=== PATIENT | female | born 1930 | race Caucasian/White ===

== ENCOUNTER 2017-09-10 12:43 | Outpatient (CLI) | payer MEDICARE, BC ==
[~2017-09-10] VITALS: Ht 161.3 cm; Wt 90.7 kg
[~2017-09-10 12:43] MED LIST: ASPI81TA30 PO; ATEN25TA PO; ESCI20TA38 PO; LORA1TAB PO; LOSA50TA37 PO; TRAM50TA2 PO; hydralazine PO
[2017-09-10] MEDS ORDERED: albuterol 2.5 MG/3 ML nebule NEB ONE (13:30)
== END 2017-09-10 23:59 | disposition home or self-care (01) ==
LOC: RT 12:43
PROVIDERS: ATTEND Family Medicine
DX: R06.02 Shortness of breath (principal); I10 Essential (primary) hypertension; J44.9 Chronic obstructive pulmonary disease, unspecified; Z87.891 Personal history of nicotine dependence
CPT/HCPCS: 94060; 94640; 94727; 94729; 94760

== ENCOUNTER 2020-12-22 19:24 | Emergency (ER) | payer MEDICARE, BC ==
[~2020-12-22] VITALS: Ht 160 cm; Wt 90.0 kg
[~2020-12-22 19:24] MED LIST changes: -ESCI20TA38 PO; +ESCI20TA39 PO; -LOSA50TA37 PO; +LOSA50TA64 PO
[2020-12-22 21:01] LABS: BASOPHILS # (AUTO) 0.1 X10'3 (0-0.2); BASOPHILS % (AUTO) 0.8 % (0-1); EOSINOPHILS # (AUTO) 0.2 X10'3 (0-0.9); EOSINOPHILS % (AUTO) 2.8 % (0-6); HEMATOCRIT 41.4 % (35.0-45.0); HEMOGLOBIN 13.7 g/dl (12.0-16.0); LYMPHOCYTES % (AUTO) 33.3 % (21-51); MEAN CORPUSCULAR HEMOGLOBIN 30.1 PG (27.0-31.0); MEAN CORPUSCULAR HGB CONC 33.1 g/dL (33.0-36.5); MEAN CORPUSCULAR VOLUME 90.8 FL (78-98); MEAN PLATELET VOLUME 8.5 FL (7.4-10.4); MONOCYTES % (AUTO) 10.9 % (2-12); NEUTROPHILS # (AUTO) 4.6 X10'3 (1.8-7.7); NEUTROPHILS % (AUTO) 52.2 % (42-75); PLATELET COUNT 255 X10'3 (140-440); RED BLOOD COUNT 4.56 X10'6 (4.20-5.60); RED CELL DISTRIBUTION WIDTH 13.7 % (11.5-14.5); WHITE BLOOD COUNT 8.9 X10'3 (4.5-11.0)
[2020-12-22 21:20] LABS: ALANINE AMINOTRANSFERASE 20 U/L (12-78); ALBUMIN 3.3 G/DL (3.4-5.0); ALBUMIN/GLOBULIN RATIO 1.1 (1.1-1.5); ALKALINE PHOSPHATASE 113 IU/L (46-116); ANION GAP 8 (8-16); ASPARTATE AMINO TRANSFERASE 11 U/L (10-37); BILIRUBIN,TOTAL 0.3 MG/DL (0.1-1.0); BLOOD UREA NITROGEN 20 MG/DL (7-18); BUN/CREATININE RATIO 16.7 (6.6-38.0); CALCIUM 9.2 MG/DL (8.5-10.1); CHLORIDE 106 MMOL/L (99-107); GLUCOSE 106 MG/DL (70-104); MAGNESIUM 2.2 MG/DL (1.5-2.4); POTASSIUM 3.7 MMOL/L (3.5-5.1); SODIUM 143 MMOL/L (135-145); TOTAL CARBON DIOXIDE 29.1 MMOL/L (24-32); TOTAL PROTEIN 6.4 G/DL (6.4-8.2); eGFR 42 ML/MIN
[2020-12-22 21:22] LABS: PARTIAL THROMBOPLASTIN TIME 25 SECONDS (22-32)
--- NOTE | 2020-12-22 22:09 | NUR ---
pt ambulate with steady gait to restroom, urine sample sent to lab
--- NOTE | 2020-12-22 22:11 | NUR ---
pt has no c/o headache, blurred vision, resting quietly on bed
[2020-12-22] MEDS ORDERED: cloNIDine 0.1 mg tablet PO ONE (23:55)
[2020-12-22] MEDS ORDERED: atenolol 50mg tablet PO ONE (23:55)
[2020-12-23 00:47] LABS: CLARITY,URINE CLOUDY (Clear); COLOR,URINE YELLOW (Yellow); GLUCOSE, URINE NEGATIVE (Neg); KETONES,URINE NEGATIVE (Neg); LEUKOCYTE ESTERASE ,URINE TRACE (Neg); NITRITES, URINE NEGATIVE (Neg); OCCULT BLOOD,URINE NEGATIVE (Neg); PH,URINE 6.5 (4.8-8.0); PROTEIN,URINE NEGATIVE (Neg); UA COLLECTION TYPE CLN CATCH MIDSTREAM; UROBILINOGEN,URINE 0.2 E.U/dL (0.2-1.0)
[2020-12-23 01:04] LABS: BACTERIA,URINE 4+ /HPF (Neg); SQUAMOUS EPITHELIAL CELL,UR FEW /LPF (FEW)
[2020-12-23 01:05] LABS: RBC,URINE 0-2 /HPF (0-2); RENAL CELLS, URINE FEW /HPF; WBC,URINE 0-4 /HPF (0-4)
[2020-12-23] MEDS ORDERED: NITR100C6 PO (02:08)
[2020-12-23 02:29] VITALS: BP 175/79
== END 2020-12-23 02:33 | disposition home or self-care (01) ==
LOC: ER 19:24
DX: N39.0 Urinary tract infection, site not specified (principal); R41.0 Disorientation, unspecified; I10 Essential (primary) hypertension; R10.84 Generalized abdominal pain; R53.1 Weakness; E78.00 Pure hypercholesterolemia, unspecified; J44.9 Chronic obstructive pulmonary disease, unspecified; Z90.710 Acquired absence of both cervix and uterus; Z60.2 Problems related to living alone; Z88.8 Allergy status to other drugs, medicaments and biological substances; Z79.82 Long term (current) use of aspirin; Z79.899 Other long term (current) drug therapy
CPT/HCPCS: 36415; 70450; 71045; 80053; 81001; 81003; 83735; 84145; 84484; 85025; 85610; 85730; 87077; 87088; 87186; 93005; 99285

== ENCOUNTER 2021-07-20 06:07 | Inpatient (IN) | payer MEDICARE, BC ==
[~2021-07-20] VITALS: Ht 162.6 cm; Wt 99.6 kg
[~2021-07-20 06:07] MED LIST changes: +NITR100C6 PO
[2021-07-20 07:27] LABS: CLARITY,URINE SLIGHTLY CLOUDY (Clear); COLOR,URINE YELLOW (Yellow); GLUCOSE, URINE NEGATIVE (Neg); KETONES,URINE TRACE mg/dl (Neg); LEUKOCYTE ESTERASE ,URINE NEGATIVE (Neg); NITRITES, URINE NEGATIVE (Neg); OCCULT BLOOD,URINE SMALL (Neg); PROTEIN,URINE TRACE mg/dl (Neg); UROBILINOGEN,URINE 0.2 E.U/dL (0.2-1.0)
[2021-07-20 07:32] LABS: UA COLLECTION TYPE CLN CATCH MIDSTREAM
[2021-07-20 07:32] LABS: BASOPHILS % (AUTO) 0.2 % (0-1); EOSINOPHILS % (AUTO) 0.3 % (0-6); HEMATOCRIT 39.2 % (35.0-45.0); HEMOGLOBIN 13.5 g/dl (12.0-16.0); LYMPHOCYTES # (AUTO) 1.6 X10'3 (1.1-4.8); LYMPHOCYTES % (AUTO) 17.3 % (21-51); MEAN CORPUSCULAR HEMOGLOBIN 30.3 PG (27.0-31.0); MEAN CORPUSCULAR HGB CONC 34.5 g/dL (33.0-36.5); MEAN CORPUSCULAR VOLUME 87.8 FL (78-98); MEAN PLATELET VOLUME 8.3 FL (7.4-10.4); MONOCYTES # (AUTO) 0.8 X10'3 (0-0.9); MONOCYTES % (AUTO) 8.5 % (2-12); NEUTROPHILS # (AUTO) 6.9 X10'3 (1.8-7.7); NEUTROPHILS % (AUTO) 73.7 % (42-75); PLATELET COUNT 279 X10'3 (140-440); RED BLOOD COUNT 4.46 X10'6 (4.20-5.60); RED CELL DISTRIBUTION WIDTH 13.9 % (11.5-14.5); WHITE BLOOD COUNT 9.4 X10'3 (4.5-11.0)
[2021-07-20 07:34] LABS: BACTERIA,URINE NONE SEEN /HPF (Neg); RBC,URINE 0-2 /HPF (0-2); WBC,URINE 0-4 /HPF (0-4)
[2021-07-20 07:35] LABS: AMORPHOUS PHOSPHATES 1+; MUCUS STRANDS FEW /LPF (Neg); SQUAMOUS EPITHELIAL CELL,UR FEW /LPF (FEW)
[2021-07-20] MEDS ORDERED: ondansetron/PF 4mg/2ml inj IV ONE ×2 (07:40→09:55)
[2021-07-20 07:45] LABS: ALANINE AMINOTRANSFERASE 15 U/L (12-78); ALBUMIN 3.6 G/DL (3.4-5.0); ALBUMIN/GLOBULIN RATIO 1.1 (1.1-1.5); ALKALINE PHOSPHATASE 65 IU/L (46-116); ANION GAP 10 (8-16); ASPARTATE AMINO TRANSFERASE 12 U/L (10-37); BILIRUBIN,TOTAL 0.8 MG/DL (0.1-1.0); BLOOD UREA NITROGEN 13 MG/DL (7-18); BUN/CREATININE RATIO 16.5 (6.6-38.0); CALCIUM 9.8 MG/DL (8.5-10.1); CHLORIDE 89 MMOL/L (99-107); CREATININE 0.79 MG/DL (0.40-0.90); GLUCOSE 115 MG/DL (70-104); LIPASE 61 U/L (73-393); POTASSIUM 3.7 MMOL/L (3.5-5.1); SODIUM 125 MMOL/L (135-145); TOTAL CARBON DIOXIDE 26.1 MMOL/L (24-32); TOTAL PROTEIN 6.8 G/DL (6.4-8.2); eGFR 69 ML/MIN
[2021-07-20] MEDS ORDERED: aspirin 81mg tab.chew PO ONE (09:55)
[2021-07-20] MEDS ORDERED: nitroGLYCERIN 0.4mg SUBLingual tab SL PRN (09:55)
--- NOTE | 2021-07-20 10:37 | NUR ---
pt. 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
[2021-07-20] MEDS ORDERED: BUSP10TA3 PO (12:45)
[2021-07-20] MEDS ORDERED: ATEN-27 PO (12:45)
[2021-07-20] MEDS ORDERED: ASPI-1265 PO (12:45)
[2021-07-20] MEDS ORDERED: magnesium Cl slow-release 64mg tablet PO PRN (12:45)
[2021-07-20] MEDS ORDERED: magnesium 4gm in 100ml NS 100 ML IV PRN (12:45)
[2021-07-20] MEDS ORDERED: RISP0.5T74 PO (12:45)
[2021-07-20] MEDS ORDERED: potassium Cl 20 mEq SR tablet PO PRN ×2 (12:45)
[2021-07-20] MEDS ORDERED: potassium Cl 40MEQ/1/2NS 520ml 520 ML IV PRN (12:45)
[2021-07-20] MEDS ORDERED: magnesium 2GM in 50ml NS 50 ML IV PRN (12:45)
[2021-07-20] MEDS ORDERED: LOSA100T57 PO (12:45)
[2021-07-20] MEDS ORDERED: PERFLUTREN PROTEIN-A MICROSPHR (Optison) 0.22 MG/ML 3ML VIAL IV ONE (12:45)
[2021-07-20] MEDS ORDERED: HYDR-4070 PO (12:45)
--- NOTE | 2021-07-20 12:50 | NUR ---
Hospitalist at bedside.
[2021-07-20] MEDS: normal saline 1000ml 1,000 ML IV SCH ×2 (13:02→22:46)
[2021-07-20 13:10] LABS: POTASSIUM 4.1 MMOL/L (3.5-5.1)
[2021-07-20 15:50] VITALS: BP 151/61
[2021-07-20] MEDS ORDERED: magnesium hydroxide 30ml (MOM) UD suspension PO ONE (17:25)
[2021-07-20] MEDS ORDERED: mag hydrox/Alum hydrox/simeth 30ml oral suspension PO ONE (17:25)
[2021-07-20 18:00] VITALS: BP 175/55
--- NOTE | 2021-07-20 18:12 | NUR ---
Gave end of shift report to Devon Christianson. Answered all her questions.
[2021-07-20] MEDS: K and/or MAG REPLACEMENT MC SCH (19:28)
--- NOTE | 2021-07-20 19:43 | NUR ---
RN paged Dr. Alvarado at [phone] at [phone] stating "28A Talia Patel - pt requesting something stronger for pain than Tylenol. 10/31 back pain. Does not take narcotics at home. -Devon [id number]". Dr. Alvarado returned phone call and gave orders for tramadol 50mg q8h po prn for severe pain (7-10).
[2021-07-20] MEDS: docusate sod 100mg capsule PO SCH (20:27)
[2021-07-20] MEDS: pantoprazole 40MG/NS 100ML BAG 100 ML IV SCH (20:27)
[2021-07-20] MEDS: traMADol 50MG tablet PO PRN (20:28)
[2021-07-20] MEDS: ondansetron/PF 4mg/2ml inj IV PRN (22:54)
[2021-07-20] MEDS: acetaminophen 325mg tablet PO PRN (22:54)
[2021-07-20] MEDS: hyDRALAzine 10mg tablet PO SCH (23:32)
[2021-07-21] VITALS (9 sets, daily range): BP systolic 148–173; BP diastolic 52–77
[2021-07-21] MEDS: traMADol 50MG tablet PO PRN ×3 (05:04→19:22)
[2021-07-21] MEDS: acetaminophen 325mg tablet PO PRN ×2 (05:08→19:21)
[2021-07-21] MEDS: ondansetron/PF 4mg/2ml inj IV PRN (05:20)
[2021-07-21 06:31] LABS: BASOPHILS % (AUTO) 0.2 % (0-1); EOSINOPHILS % (AUTO) 0.2 % (0-6); HEMATOCRIT 37.6 % (35.0-45.0); HEMOGLOBIN 12.7 g/dl (12.0-16.0); LYMPHOCYTES # (AUTO) 1.6 X10'3 (1.1-4.8); LYMPHOCYTES % (AUTO) 19.3 % (21-51); MEAN CORPUSCULAR HEMOGLOBIN 30.1 PG (27.0-31.0); MEAN CORPUSCULAR HGB CONC 33.8 g/dL (33.0-36.5); MEAN CORPUSCULAR VOLUME 88.9 FL (78-98); MEAN PLATELET VOLUME 8.3 FL (7.4-10.4); MONOCYTES % (AUTO) 11.3 % (2-12); NEUTROPHILS # (AUTO) 5.9 X10'3 (1.8-7.7); PLATELET COUNT 248 X10'3 (140-440); RED BLOOD COUNT 4.23 X10'6 (4.20-5.60); RED CELL DISTRIBUTION WIDTH 13.6 % (11.5-14.5); WHITE BLOOD COUNT 8.5 X10'3 (4.5-11.0)
[2021-07-21 06:35] LABS: ANION GAP 9 (8-16); BLOOD UREA NITROGEN 13 MG/DL (7-18); BUN/CREATININE RATIO 15.9 (6.6-38.0); CALCIUM 8.4 MG/DL (8.5-10.1); CHLORIDE 97 MMOL/L (99-107); CREATININE 0.82 MG/DL (0.40-0.90); GLUCOSE 92 MG/DL (70-104); MAGNESIUM 1.7 MG/DL (1.5-2.4); POTASSIUM 3.8 MMOL/L (3.5-5.1); SODIUM 132 MMOL/L (135-145); eGFR 66 ML/MIN
[2021-07-21] MEDS: K and/or MAG REPLACEMENT MC SCH ×2 (08:00→19:01)
[2021-07-21] MEDS: docusate sod 100mg capsule PO SCH ×2 (08:13→19:20)
[2021-07-21] MEDS: pantoprazole 40MG/NS 100ML BAG 100 ML IV SCH (08:13)
[2021-07-21] MEDS: hyDRALAzine 10mg tablet PO SCH (08:13)
[2021-07-21] MEDS: normal saline 1000ml 1,000 ML IV SCH ×2 (10:08→19:18)
--- NOTE | 2021-07-21 11:05 | NUR ---
MD Toan garcia, pts daughter at bedside wanting updates from .
--- NOTE | 2021-07-21 12:01 | NUR ---
PAGER ID: [phone] MESSAGE: [id number](Jorge) BP 173/68 no prns. FEMI Owen RN
[2021-07-21] MEDS: hydrALAZINE 25 MG tablet PO SCH ×2 (13:33→19:23)
[2021-07-21] MEDS: atenolol 50mg tablet PO SCH ×2 (13:40→20:42)
[2021-07-21] MEDS ORDERED: hydrALAZINE 20mg/ml inj. IV SCH (14:00)
[2021-07-21] MEDS: busPIRone 5mg tablet PO PRN (17:08)
--- NOTE | 2021-07-21 18:09 | NUR ---
notified. O2 sats 90% RA>> 97% on 2LNC. BP 169/59 after scheduled meds given. No prns. Awaiting orders.
[2021-07-21] MEDS: pantoprazole 40mg Tablet.DR PO SCH (19:20)
[2021-07-21] MEDS: risperiDONE 0.5mg tablet PO SCH (20:41)
[2021-07-21] MEDS ORDERED: magnesium hydroxide 30ml (MOM) UD suspension PO ONE (21:00)
[2021-07-21] MEDS ORDERED: lactulose 20gm/30ml cup PO ONE (21:00)
[2021-07-22] MEDS: busPIRone 5mg tablet PO PRN (01:45)
[2021-07-22] MEDS: hydrALAZINE 25 MG tablet PO SCH ×3 (01:47→14:00)
[2021-07-22 03:00] VITALS: BP 162/69
[2021-07-22] MEDS: traMADol 50MG tablet PO PRN (05:02)
[2021-07-22] MEDS: acetaminophen 325mg tablet PO PRN (05:04)
[2021-07-22] MEDS: normal saline 1000ml 1,000 ML IV SCH (05:05)
[2021-07-22 06:00] VITALS: BP 147/84
[2021-07-22 06:48] LABS: ALBUMIN 2.9 G/DL (3.4-5.0); ANION GAP 6 (8-16); BLOOD UREA NITROGEN 13 MG/DL (7-18); CALCIUM 8.5 MG/DL (8.5-10.1); CHLORIDE 102 MMOL/L (99-107); CREATININE 0.81 MG/DL (0.40-0.90); GLUCOSE 96 MG/DL (70-104); MAGNESIUM 2.5 MG/DL (1.5-2.4); POTASSIUM 3.8 MMOL/L (3.5-5.1); SODIUM 136 MMOL/L (135-145); TOTAL CARBON DIOXIDE 27.6 MMOL/L (24-32); eGFR 67 ML/MIN
[2021-07-22 06:57] LABS: BASOPHILS % (AUTO) 0.5 % (0-1); EOSINOPHILS # (AUTO) 0.1 X10'3 (0-0.9); EOSINOPHILS % (AUTO) 0.9 % (0-6); HEMOGLOBIN 12.4 g/dl (12.0-16.0); LYMPHOCYTES # (AUTO) 2.2 X10'3 (1.1-4.8); LYMPHOCYTES % (AUTO) 23.2 % (21-51); MEAN CORPUSCULAR HEMOGLOBIN 30.3 PG (27.0-31.0); MEAN CORPUSCULAR HGB CONC 33.5 g/dL (33.0-36.5); MEAN CORPUSCULAR VOLUME 90.3 FL (78-98); MEAN PLATELET VOLUME 8.2 FL (7.4-10.4); MONOCYTES % (AUTO) 11.2 % (2-12); NEUTROPHILS % (AUTO) 64.2 % (42-75); PLATELET COUNT 257 X10'3 (140-440); RED BLOOD COUNT 4.09 X10'6 (4.20-5.60); RED CELL DISTRIBUTION WIDTH 14.1 % (11.5-14.5); WHITE BLOOD COUNT 9.3 X10'3 (4.5-11.0)
[2021-07-22] MEDS: K and/or MAG REPLACEMENT MC SCH (08:00)
[2021-07-22] MEDS ORDERED: aspirin 81mg tab.chew PO SCH (08:00)
[2021-07-22] MEDS ORDERED: losartan 50mg tablet PO SCH (08:00)
[2021-07-22] MEDS ORDERED: docusate sod 100mg capsule PO SCH (08:00)
[2021-07-22] MEDS: docusate sod 100mg capsule PO SCH (09:31)
[2021-07-22] MEDS: pantoprazole 40mg Tablet.DR PO SCH (09:32)
[2021-07-22 11:00] VITALS: BP 157/97
[2021-07-22] MEDS ORDERED: amLODIPine 2.5mg tablet PO SCH (11:05)
[2021-07-22] MEDS ORDERED: AMLO2.5T5 PO (11:09)
[2021-07-22] MEDS ORDERED: PANT40TA54 PO (11:09)
[2021-07-22] MEDS ORDERED: BISA-78 PO (11:09)
[2021-07-22] MEDS ORDERED: DOCU-148 PO (11:09)
[2021-07-22] MEDS ORDERED: sodium polystyrene sulfonate ENEMA 30gm/120ml RC ONE (11:10)
[2021-07-22] MEDS: risperiDONE 0.5mg tablet PO SCH (11:45)
--- NOTE | 2021-07-22 11:47 | NUR ---
PAGER ID: [phone] MESSAGE: CECE ON [phone], I DO NOT SEE THE ROUTINE DISCHARGE ORDER FOR FAMILIA Velazquez, CAN I PLACE THAT FOR YOU?
[2021-07-22 11:50] VITALS: BP_SYST 170
--- NOTE | 2021-07-22 12:39 | NUR ---
PAGER ID: [phone] MESSAGE: CECE ON [phone], WE NEED A ROUTINE DISCHARGE ORDER FOR Marcus BARBOSA, I CAN PLACE FOR YOU IF YOU CALL ME, X
--- NOTE | 2021-07-22 13:41 | NUR ---
PAGE SENT PAGER ID: [phone] MESSAGE: [id number], FRANK BARBOSA, PT HAD BM! AWAITING DISCHARGE ORDERS. THANK YOU. ALONZO [phone]
--- NOTE | 2021-07-22 15:06 | NUR ---
PT STABLE FOR DISCHARGE PER MD. DISCHARGE AND FOLLOW UP INSTRUCTIONS REVIEWED WITH PT AND HER DAUGHTER, OPPORTUNITY GIVEN TO ASK QUESTIONS. TELE BOX REMOVED. PIV REMOVED WITH TIP INTACT. PT WALKED TO LOBBY WITH HOSPITAL STAFF. PT DISCHARGE TO HER HOME AT [facility]. PT TRANSPORTED BY PRIVATE VEHICLE.
== END 2021-07-22 15:00 | disposition home or self-care (01) | DRG 641 ==
LOC: ER 06:08 → ED HOLD 12:46 → PCU 3S 16:11
PROVIDERS: ADMIT Internal Medicine; ATTEND Internal Medicine
DX: E87.1 Hypo-osmolality and hyponatremia (principal); I31.3 Pericardial effusion (noninflammatory); E78.00 Pure hypercholesterolemia, unspecified; I10 Essential (primary) hypertension; K21.9 Gastro-esophageal reflux disease without esophagitis; R63.0 Anorexia; J44.9 Chronic obstructive pulmonary disease, unspecified; Z60.2 Problems related to living alone; K44.9 Diaphragmatic hernia without obstruction or gangrene; K59.00 Constipation, unspecified; M79.7 Fibromyalgia; N28.1 Cyst of kidney, acquired; Z82.49 Family history of ischemic heart disease and other diseases of the circulatory system; Z90.710 Acquired absence of both cervix and uterus; Z68.37 Body mass index [BMI] 37.0-37.9, adult; Z88.5 Allergy status to narcotic agent; Z88.8 Allergy status to other drugs, medicaments and biological substances; Z91.041 Radiographic dye allergy status; Z79.899 Other long term (current) drug therapy; Z79.82 Long term (current) use of aspirin
CPT/HCPCS: 36415; 74176; 80048; 80053; 81001; 83690; 83735; 84132; 84484; 85025; 93005; 93306; 96374; 96375; 99285; C9113; G0378; J2405; J7030

== ENCOUNTER 2021-09-12 09:15 | Inpatient (IN) | payer MEDICARE, BC ==
[~2021-09-12] VITALS: Ht 162.6 cm; Wt 82.7 kg
[~2021-09-12 09:15] MED LIST changes: +AMLO2.5T5 PO; +ASPI-1265 PO; -ASPI81TA30 PO; +ATEN-27 PO; -ATEN25TA PO; +BISA-78 PO; +BUSP10TA3 PO; +DOCU-148 PO; -ESCI20TA39 PO; +HYDR-4070 PO; -LORA1TAB PO; +LOSA100T57 PO; -LOSA50TA64 PO; -NITR100C6 PO; +PANT40TA54 PO; +RISP0.5T74 PO; -TRAM50TA2 PO; -hydralazine PO
[2021-09-12 09:49] LABS: BASOPHILS % (AUTO) 0.7 % (0-1); EOSINOPHILS % (AUTO) 0.6 % (0-6); HEMATOCRIT 42.5 % (35.0-45.0); HEMOGLOBIN 14.5 g/dl (12.0-16.0); LYMPHOCYTES # (AUTO) 1.4 X10'3 (1.1-4.8); MEAN CORPUSCULAR HEMOGLOBIN 30.2 PG (27.0-31.0); MEAN CORPUSCULAR VOLUME 88.9 FL (78-98); MEAN PLATELET VOLUME 8.7 FL (7.4-10.4); MONOCYTES # (AUTO) 0.7 X10'3 (0-0.9); MONOCYTES % (AUTO) 9.8 % (2-12); NEUTROPHILS # (AUTO) 4.6 X10'3 (1.8-7.7); NEUTROPHILS % (AUTO) 67.9 % (42-75); PLATELET COUNT 217 X10'3 (140-440); RED BLOOD COUNT 4.78 X10'6 (4.20-5.60); RED CELL DISTRIBUTION WIDTH 13.2 % (11.5-14.5); WHITE BLOOD COUNT 6.7 X10'3 (4.5-11.0)
[2021-09-12 10:05] LABS: ALANINE AMINOTRANSFERASE 19 U/L (12-78); ALBUMIN 3.5 G/DL (3.4-5.0); ALBUMIN/GLOBULIN RATIO 1.1 (1.1-1.5); ALKALINE PHOSPHATASE 77 IU/L (46-116); ANION GAP 14 (8-16); ASPARTATE AMINO TRANSFERASE 19 U/L (10-37); BILIRUBIN,TOTAL 0.5 MG/DL (0.1-1.0); BLOOD UREA NITROGEN 12 MG/DL (7-18); CALCIUM 8.8 MG/DL (8.5-10.1); CHLORIDE 98 MMOL/L (99-107); CREATININE 0.86 MG/DL (0.40-0.90); GLUCOSE 117 MG/DL (70-104); POTASSIUM 3.2 MMOL/L (3.5-5.1); SODIUM 137 MMOL/L (135-145); TOTAL CARBON DIOXIDE 25.4 MMOL/L (24-32); TOTAL PROTEIN 6.8 G/DL (6.4-8.2); eGFR 62 ML/MIN
--- NOTE | 2021-09-12 12:54 | NUR ---
NOTIFIED EARLIER THE CHARGE NURSE NINI THAT PT IS COVID +.
[2021-09-12] MEDS ORDERED: magnesium 2GM in 50ml NS 50 ML IV PRN (14:05)
[2021-09-12] MEDS: normal saline 1000ml 1,000 ML IV SCH (14:05)
[2021-09-12] MEDS ORDERED: acetaminophen 325mg tablet PO PRN (14:05)
[2021-09-12] MEDS ORDERED: ondansetron/PF 4mg/2ml inj IV PRN (14:05)
[2021-09-12] MEDS ORDERED: potassium CL 10mEq/100ml bag 100 ML IV PRN (14:05)
[2021-09-12] MEDS ORDERED: magnesium 4gm in 100ml NS 100 ML IV PRN (14:05)
[2021-09-12] MEDS ORDERED: magnesium Cl slow-release 64mg tablet PO PRN (14:05)
[2021-09-12] MEDS ORDERED: POTASSIUM BICARB 20meq eff tab 20 MEQ TABLET.EFF PO PRN ×2 (14:05)
[2021-09-12] MEDS ORDERED: PERFLUTREN PROTEIN-A MICROSPHR (Optison) 0.22 MG/ML 3ML VIAL IV ONE (14:15)
[2021-09-12 15:19] LABS: POTASSIUM 3.5 MMOL/L (3.5-5.1)
[2021-09-12] MEDS: K and/or MAG REPLACEMENT MC SCH (20:00)
[2021-09-13] MEDS: normal saline 1000ml 1,000 ML IV SCH ×2 (01:32→10:05)
[2021-09-13 01:37] LABS: BASOPHILS # (AUTO) 0.1 X10'3 (0-0.2); BASOPHILS % (AUTO) 0.7 % (0-1); EOSINOPHILS % (AUTO) 0.4 % (0-6); HEMATOCRIT 43.2 % (35.0-45.0); HEMOGLOBIN 14.6 g/dl (12.0-16.0); LYMPHOCYTES # (AUTO) 1.8 X10'3 (1.1-4.8); MEAN CORPUSCULAR HEMOGLOBIN 30.6 PG (27.0-31.0); MEAN CORPUSCULAR HGB CONC 33.9 g/dL (33.0-36.5); MEAN CORPUSCULAR VOLUME 90.2 FL (78-98); MEAN PLATELET VOLUME 8.5 FL (7.4-10.4); MONOCYTES # (AUTO) 0.9 X10'3 (0-0.9); NEUTROPHILS # (AUTO) 4.6 X10'3 (1.8-7.7); NEUTROPHILS % (AUTO) 62.9 % (42-75); PLATELET COUNT 195 X10'3 (140-440); RED BLOOD COUNT 4.79 X10'6 (4.20-5.60); RED CELL DISTRIBUTION WIDTH 13.6 % (11.5-14.5); WHITE BLOOD COUNT 7.3 X10'3 (4.5-11.0)
[2021-09-13 01:55] LABS: ALBUMIN 3.3 G/DL (3.4-5.0); ANION GAP 13 (8-16); BLOOD UREA NITROGEN 12 MG/DL (7-18); BUN/CREATININE RATIO 17.6 (6.6-38.0); CHLORIDE 102 MMOL/L (99-107); CREATININE 0.68 MG/DL (0.40-0.90); GLUCOSE 100 MG/DL (70-104); MAGNESIUM 1.9 MG/DL (1.5-2.4); POTASSIUM 3.4 MMOL/L (3.5-5.1); SODIUM 139 MMOL/L (135-145); TOTAL CARBON DIOXIDE 24.4 MMOL/L (24-32); eGFR 81 ML/MIN
[2021-09-13] MEDS ORDERED: atenolol 50mg tablet PO SCH (02:16)
[2021-09-13] MEDS ORDERED: risperiDONE 0.5mg tablet PO SCH (08:00)
[2021-09-13] MEDS ORDERED: hydrALAZINE 25 MG tablet PO SCH (08:00)
[2021-09-13] MEDS ORDERED: losartan 50mg tablet PO SCH (08:00)
[2021-09-13] MEDS ORDERED: busPIRone 5mg tablet PO SCH (08:00)
[2021-09-13] MEDS ORDERED: enoxaparin 80mg/0.8ml syringe SUBCUT SCH (08:05)
[2021-09-13] MEDS: K and/or MAG REPLACEMENT MC SCH (08:07)
[2021-09-13 09:51] LABS: D-DIMER 0.39 MG/L FEU (0-0.50)
[2021-09-13] MEDS ORDERED: ASPI81TA52 PO (10:57)
[2021-09-13] MEDS ORDERED: POTA-207 PO (10:57)
[2021-09-13] MEDS ORDERED: ATOR20TA66 PO (10:57)
[2021-09-13 11:32] VITALS: BP 122/67
== END 2021-09-13 11:58 | disposition home or self-care (01) | DRG 177 ==
LOC: ER 09:16 → ED HOLD 14:08
PROVIDERS: ADMIT Internal Medicine; ATTEND Internal Medicine
DX: U07.1 COVID-19 (principal); I21.4 Non-ST elevation (NSTEMI) myocardial infarction; J98.11 Atelectasis; J90 Pleural effusion, not elsewhere classified; K57.90 Diverticulosis of intestine, part unspecified, without perforation or abscess without bleeding; K21.9 Gastro-esophageal reflux disease without esophagitis; J44.9 Chronic obstructive pulmonary disease, unspecified; M79.7 Fibromyalgia; E78.00 Pure hypercholesterolemia, unspecified; E66.9 Obesity, unspecified; G47.33 Obstructive sleep apnea (adult) (pediatric); E78.5 Hyperlipidemia, unspecified; Z60.2 Problems related to living alone; I08.1 Rheumatic disorders of both mitral and tricuspid valves; F03.90 Unspecified dementia, unspecified severity, without behavioral disturbance, psychotic disturbance, mood disturbance, and anxiety; E87.6 Hypokalemia; F32.A Depression, unspecified; I10 Essential (primary) hypertension; F41.9 Anxiety disorder, unspecified; I25.10 Atherosclerotic heart disease of native coronary artery without angina pectoris; Z79.82 Long term (current) use of aspirin; Z82.49 Family history of ischemic heart disease and other diseases of the circulatory system; Z85.820 Personal history of malignant melanoma of skin; Z87.891 Personal history of nicotine dependence; Z90.710 Acquired absence of both cervix and uterus; Z68.31 Body mass index [BMI] 31.0-31.9, adult; Z88.5 Allergy status to narcotic agent; Z88.8 Allergy status to other drugs, medicaments and biological substances; Z91.041 Radiographic dye allergy status; Z79.899 Other long term (current) drug therapy
CPT/HCPCS: 36415; 71045; 80048; 80053; 83735; 83880; 84132; 84484; 85025; 85379; 86140; 87502; 87503; 87635; 93308; 99285; C9803; G0378; J1650; J2405; J7030